=== PATIENT | female | born 1990 | race Caucasian/White ===

== ENCOUNTER 2017-06-29 15:41 | Emergency (ER) | payer MEDICAID, SELFPAY ==
[2017-06-29 15:54] VITALS: BP 133/72; PULSE 70; RESP 18; TEMP 36.7; O2SAT 96; BMI 15.6
--- NOTE | 2017-06-29 16:02 | XR_ITS ---
XR acute abdomen series Ordering Physician: Gage Peters MD Patient Age: 27 years: Female HISTORY: ITS.REASON: upper abdominal pain TECHNIQUE: Upright chest with flat and upright views abdomen COMPARISON :None FINDINGS . UPRIGHT CHEST. Lungs are clear no active disease. No free air beneath the diaphragm . FLAT AND UPRIGHT VIEWS OF ABDOMEN: Moderate to generous stool is seen throughout the transverse colon through the splenic flexure & to the descending colon.. Numerous air-fluid levels are seen at the right bowel loops, at the right abdomen.. These air-fluid levels of a likely involve both nondilated large bowel and small bowel. I would tend to favor developing enteritis at this point. I would anticipate patient would develop diarrhea and near term with this appearance.. A localized ileus towards right lower quadrant could also yield a similar appearance. If symptoms worsen or progress or localized towards right lower quadrant, consider CT. No significant calcifications. A moderately distended fluid-filled stomach. No organomegaly. Dextroscoliosis lumbar spine. ==== IMPRESSION: ======== Scattered moderate air-fluid levels are seen in nondilated bowel here at the right abdomen. Likely involving the right colon hepatic flexure as well as distal small bowel appears most likely reflects developing enteritis. Localized ileus could yield similar pattern. Moderate solid stool is seen throughout the distal transverse colon and left colon. If symptoms worsen or localized in the right lower quadrant and consider follow-up CT, preferably with contrast
--- NOTE | 2017-06-29 16:06 | HMH.EDGENADL ---
ED Disposition Clinical Impression: Abdominal pain, Left against medical advice, Amenorrhea Disposition: Home, Self-Care Condition on Discharge: Fair - Critical Care Critical Care Time: No Attestation: On , the high probability of a clinically significant, sudden or life threatening deterioration of the following system(s) required my full and direct attention, intervention and personal management. The time I documented below is in addition to time spent performing reported procedures but includes the following listed in this critical care notation. Medical Decision Making Vital Signs: 06/29/17 15:54 Temperature 98.1 F Temperature Source Temporal Artery Scan Pulse Rate [Right Brachial] 70 Respiratory Rate 18 Blood Pressure [Right Arm] 133/72 Blood Pressure Mean [Right Arm] 92 Blood Pressure Source [Right Arm] Automatic Cuff Blood Pressure Position [Right Arm] Sitting 02 Sat by Pulse Oximetry 96 Oxygen Delivery Method Room Air - Lab Data Lab results reviewed: Yes: I reviewed the patient's lab results. Lab Results 06/29/17 16:00: Urine Color Yellow, Urine Appearance Sl cloudy, Urine pH 6.0, Ur Specific [place] 1.020, Urine Protein Negative, Urine Glucose (UA) Negative, Urine Ketones Negative, Urine Blood Trace-i, Urine Nitrate Negative, Urine Bilirubin Negative, Urine Urobilinogen 0.2, Ur Leukocyte Esterase Negative, Urine RBC Occasional, Urine WBC Occasional, Ur Squamous Epith Cells 10-20, Urine Bacteria 3+ 06/29/17 16:02: Urine HCG, Qual Negative 06/29/17 17:47: WBC 5.3, RBC 4.80, Hgb 15.0, Hct 45.1, MCV 93.9, MCH 31.2, MCHC 33.3, RDW 12.2, Plt Count 191, MPV 8.6, Neut % (Auto) 41.4, Lymph % (Auto) 49.2, [place] % (Auto) 4.6, Eos % (Auto) 4.2, Baso % (Auto) 0.7, Neut # (Auto) 2.2, Lymph # (Auto) 2.6, [place] # (Auto) 0.2, Eos # (Auto) 0.2, Baso # (Auto) 0.0 Result diagrams: 06/29/17 17:47 Orders (Tests/Meds): ED MEDICATIONS Discontinued Medications Generic Name Dose Route Start Last Admin Trade Name Freq PRN Reason Stop Dose Admin Dicyclomine HCl 10 mg 06/29/17 16:02 06/29/17 17:35 Bentyl 10mg Capsule PO 06/29/17 16:03 10 mg ONCE ONE Administration Sodium Chloride 1,000 mls @ 999 mls/hr 06/29/17 16:15 06/29/17 17:49 Sod Chlor 0.9% 1000ml Bag IV 06/29/17 17:15 999 mls/hr .Q1H1M ALISON Administration ORDERS Category Date Time Status Comprehensive Metabolic Panel Stat Lab 06/29/17 17:47 Received Lipase Stat Lab 06/29/17 17:47 Received Urine Culture Stat Micro 06/29/17 16:00 Received - Radiology Data #1 Image(s): Abdomen, Pelvis Image Reviewed: Yes I have reviewed radiologist's interpretation Preliminary Findings: Abnormal - Ja Inquiry Pt receiving controlled substance: No Ja was queried for this patient: No Medical Decision Making Narrative: She lost her IV and declined to have another one while waiting on the labs Shortly after she wanted to leave and will call back for lab results or follow up with pcp Dr Telles in AM. she signed AMA aware of the risks and benefits. General Adult HPI - General Chief complaint: PAIN Stated complaint: abd pain, possibly Mode of Arrival: Ambulatory Limitations: No Limitations Description of Symptoms (Recalled from ER Triage Doc. by RN): abd pain - History of Present Illness HPI narrative: 27 years old white female with 2 para 2 A0, last menstrual period was at the end of March. She presented today with one week history of upper abdominal sharp pain, radiating across the upper abdomen, lasts for 5 minutes, 10 times a day with no precipitating or relieving factor. She has no fever no chills no nausea no vomiting no diarrhea. Hematemesis no coffee-ground emesis no bleeding per rectum, she denies chest pain shortness of breath or palpation. Onset (ago): week(s) (one week.) Location: abdomen Radiation: non-radiation Quality: sharp Consistency: intermittent Relieving factors: n
--- NOTE | 2017-06-29 16:09 | ED_ITS ---
ED Disposition Clinical Impression: Abdominal pain, Left against medical advice, Amenorrhea Disposition: Home, Self-Care Condition on Discharge: Fair - Critical Care Critical Care Time: No Attestation: On , the high probability of a clinically significant, sudden or life threatening deterioration of the following system(s) required my full and direct attention, intervention and personal management. The time I documented below is in addition to time spent performing reported procedures but includes the following listed in this critical care notation. Medical Decision Making Vital Signs: 06/29/17 15:54 Temperature 98.1 F Temperature Source Temporal Artery Scan Pulse Rate [Right Brachial] 70 Respiratory Rate 18 Blood Pressure [Right Arm] 133/72 Blood Pressure Mean [Right Arm] 92 Blood Pressure Source [Right Arm] Automatic Cuff Blood Pressure Position [Right Arm] Sitting 02 Sat by Pulse Oximetry 96 Oxygen Delivery Method Room Air - Lab Data Lab results reviewed: Yes: I reviewed the patient's lab results. Lab Results 06/29/17 16:00: Urine Color Yellow, Urine Appearance Sl cloudy, Urine pH 6.0, Ur Specific [place] 1.020, Urine Protein Negative, Urine Glucose (UA) Negative, Urine Ketones Negative, Urine Blood Trace-i, Urine Nitrate Negative, Urine Bilirubin Negative, Urine Urobilinogen 0.2, Ur Leukocyte Esterase Negative, Urine RBC Occasional, Urine WBC Occasional, Ur Squamous Epith Cells 10-20, Urine Bacteria 3+ 06/29/17 16:02: Urine HCG, Qual Negative 06/29/17 17:47: WBC 5.3, RBC 4.80, Hgb 15.0, Hct 45.1, MCV 93.9, MCH 31.2, MCHC 33.3, RDW 12.2, Plt Count 191, MPV 8.6, Neut % (Auto) 41.4, Lymph % (Auto) 49.2 , [place] % (Auto) 4.6, Eos % (Auto) 4.2, Baso % (Auto) 0.7, Neut # (Auto) 2.2, Lymph # (Auto) 2.6, [place] # (Auto) 0.2, Eos # (Auto) 0.2, Baso # (Auto) 0.0 Result diagrams: 06/29/17 17:47 Orders (Tests/Meds): ED MEDICATIONS Discontinued Medications Generic Name Dose Route Start Last Admin Trade Name Freq PRN Reason Stop Dose Admin Dicyclomine HCl 10 mg 06/29/17 16:02 06/29/17 17:35 Bentyl 10mg Capsule PO 06/29/17 16:03 10 mg ONCE ONE Administration Sodium Chloride 1,000 mls @ 999 mls/hr 06/29/17 16:15 06/29/17 17:49 Sod Chlor 0.9% 1000ml Bag IV 06/29/17 17:15 999 mls/hr .Q1H1M ALISON Administration ORDERS Category Date Time Status Comprehensive Metabolic Panel Stat Lab 06/29/17 17:47 Received Lipase Stat Lab 06/29/17 17:47 Received Urine Culture Stat Micro 06/29/17 16:00 Received - Radiology Data #1 Image(s): Abdomen, Pelvis Image Reviewed: Yes I have reviewed radiologist's interpretation Preliminary Findings: Abnormal - Ja Inquiry Pt receiving controlled substance: No Ja was queried for this patient: No Medical Decision Making Narrative: She lost her IV and declined to have another one while waiting on the labs Shortly after she wanted to leave and will call back for lab results or follow up with pcp Dr Telles in AM. she signed AMA aware of the risks and benefits. General Adult HPI - General Chief complaint: PAIN Stated complaint: abd pain, possibly Mode of Arrival: Ambulatory Limitations: No Limitations Description of Symptoms (Recalled from ER Triage Doc. by RN): abd pain - History of P
[2017-06-29 16:11] LABS: Microscopic, Urine URINE MICROSCOPIC (MICROSCOPIC)
[2017-06-29 16:12] LABS: Appearance,Urine SL CLOUDY (Clear); Bilirubin,Urine Negative (Negative); Blood, Urine TRACE-I (Negative); Color,Urine YELLOW (Yellow); Glucose,Urine (UA) Negative (Negative); Ketones,Urine Negative (Negative); Leukocyte Esterase,Urine Negative (Negative); Nitrate,Urine Negative (Negative); Protein,Urine Negative (Negative); Urobilinogen,Urine 0.2 EU/dl (0.2)
[2017-06-29 16:18] LABS: Bacteria,Urine 3+ /lpf; RBC,Urine Occasional #/hpf (0-3); WBC,Urine Occasional #/hpf (0-3)
[2017-06-29 16:34] LABS: Urine Pregnancy, HCG Qual. Negative (Negative)
[2017-06-29 17:55] LABS: Basophils % 0.7 % (0.1-2.0); Eosinophils # 0.2 K/mm3 (0.0-0.4); Eosinophils % 4.2 % (0.1-12.0); Hematocrit 45.1 % (37.0-47.0); Lymphocytes # 2.6 K/mm3 (0.7-4.5); Lymphocytes % 49.2 K/mm3 (10-50); Mean Corpuscular HGB Conc 33.3 g/dL (31.8-35.4); Mean Corpuscular Hemoglobin 31.2 pg (27.0-31.2); Mean Corpuscular Volume 93.9 fl (81-99); Mean Platelet Volume 8.6 fl (7.4-10.4); Monocytes # 0.2 K/mm3 (0.1-1.0); Monocytes % 4.6 % (1.7-9.3); Neutrophils # 2.2 K/mm3 (1.8-7.8); Neutrophils % 41.4 % (37.0-80.0); Platelet Count 191 K/mm3 (142-424); Red Cell Distribution Width 12.2 % (11.5-17.5); White Blood Count 5.3 K/mm3 (4.8-10.8)
[2017-06-29 18:05] VITALS: BP 123/70; PULSE 72; RESP 18; TEMP 36.7; O2SAT 98
[2017-06-29 18:07] LABS: Alanine Aminotransferase 32 U/L (12-78); Albumin Level 4.5 gm/dL (3.4-5.0); Albumin/Globulin Ratio 1.3 (1.1-1.8); Alkaline Phosphatase 89 U/L (46-116); Anion Gap 9.9 mEq/L (5-15); Bilirubin,Total 0.4 mg/dL (0.2-1.0); Blood Urea Nitrogen 9 mg/dL (7-18); Calcium 8.7 mg/dL (8.5-10.1); Carbon Dioxide 30 mmol/L (21.0-32.0); Chloride 102 mmol/L (98-107); Creatinine Clearance Estimated 77 mL/min (0-300); Creatinine,Serum 0.79 mg/dL (0.55-1.02); Estimated Glomerular Filt Rate 88 ml/min (>60); GFR (African American) 106 ML/MIN (>60); Globulin 3.6 gm/dl (1.3-3.2); Glucose 84 mg/dL (74-106); Lipase 96 u/L (73-393); Sodium 138 mmol/L (136-145); Total Protein,Serum 8.1 gm/dL (6.4-8.2)
[2017-06-29 18:10] LABS: Aspartate Amino Transferase 22 U/L (15-37); Potassium 3.9 mmoL/L (3.5-5.1)
== END 2017-06-29 18:05 | disposition left against medical advice (07) ==
PROVIDERS: Emergency Provider Emergency Medicine
DX: R10.84 Generalized abdominal pain (principal); N91.2 Amenorrhea, unspecified; F17.210 Nicotine dependence, cigarettes, uncomplicated
CPT/HCPCS: 74021; 80053; 81001; 81025; 83690; 85025; 87086; 96365; 99282

== ENCOUNTER → 2018-10-07 18:35 | Outpatient (CLI) | payer MEDICAID, SELFPAY ==
[2018-10-07 19:53] LABS: Amphetamine/Metha Screen,Urine Negative ng/mL (<1000); Barbiturates Screen,Urine Negative ng/mL (<200); Benzodiazepines Screen,Urine Negative ng/mL (<200); Cannabinoid Screen,Urine Negative ng/mL (<50); Cocaine Screen,Urine Negative ng/mL (<300); Methadone Screen,Urine Negative ng/mL (<300); Opiate Screen,Urine Negative ng/mL (<300); Phencyclidine Screen,Urine Negative ng/mL (<25)
== END ==
PROVIDERS: Visit Provider Nurse Practitioner Family
DX: Z79.899 Other long term (current) drug therapy (principal)
CPT/HCPCS: 80305

== ENCOUNTER → 2018-11-06 17:42 | Outpatient (CLI) | payer MEDICAID, SELFPAY ==
[2018-11-06 18:36] LABS: Amphetamine/Metha Screen,Urine Negative ng/mL (<1000); Barbiturates Screen,Urine Negative ng/mL (<200); Benzodiazepines Screen,Urine Negative ng/mL (<200); Cannabinoid Screen,Urine Negative ng/mL (<50); Cocaine Screen,Urine Negative ng/mL (<300); Methadone Screen,Urine Negative ng/mL (<300); Opiate Screen,Urine Negative ng/mL (<300); Phencyclidine Screen,Urine Negative ng/mL (<25)
== END ==
PROVIDERS: Visit Provider Nurse Practitioner Family
DX: Z79.899 Other long term (current) drug therapy (principal)
CPT/HCPCS: 80305

== ENCOUNTER → 2018-11-27 09:56 | Outpatient (CLI) | payer MEDICAID, SELFPAY ==
--- NOTE | 2018-11-27 10:06 | US_ITS ---
US OB transvaginal HISTORY: ITS.REASON: US OB Dates ORDERING PHYSICIAN: John Kay MD PATIENT AGE: 28 years COMPARISON: None FINDINGS: An intrauterine gestational sac is present with a pole with a crown-rump length of 2.26cm correlating to gestational age of 9w0d. heart tones are present with an FHR of 176 bpm's. Yolk sac is noted. Adnexa: Unremarkable. IMPRESSION: Live intrauterine gestation at 9 weeks 0 days as described above. Estimated due date by Ultrasound is 07/02/2019
== END ==
PROVIDERS: PCP Emergency Medicine; Visit Provider Nurse Practitioner Obstetrics & Gynecology
DX: O26.841 Uterine size-date discrepancy, first trimester (principal)
CPT/HCPCS: 76817

== ENCOUNTER → 2018-12-22 09:14 | Outpatient (CLI) | payer MEDICAID, SELFPAY ==
[2018-12-22 10:12] LABS: Basophils % 0.4 % (0.1-2.0); Eosinophils # 0.2 K/mm3 (0.0-0.4); Eosinophils % 3.8 % (0.1-12.0); Hematocrit 38.5 % (37.0-47.0); Hemoglobin 12.9 g/dL (12.2-16.2); Lymphocytes % 30.6 % (10-50); Mean Corpuscular HGB Conc 33.5 g/dL (31.8-35.4); Mean Corpuscular Hemoglobin 31.1 pg (27.0-31.2); Mean Corpuscular Volume 92.8 fl (81-99); Mean Platelet Volume 7.9 fl (7.4-10.4); Monocytes # 0.3 K/mm3 (0.1-1.0); Monocytes % 5.2 % (1.7-9.3); Neutrophils # 3.9 K/mm3 (1.8-7.8); Neutrophils % 59.9 % (37.0-80.0); Platelet Count 212 K/mm3 (142-424); Red Blood Count 4.15 M/mm3 (4.20-5.40); Red Cell Distribution Width 12.2 % (11.5-17.5); White Blood Count 6.4 K/mm3 (4.8-10.8)
[2018-12-23 05:08] LABS: HIV Screen 4th Generation wRfx Non Reactive (Non Reactive)
[2018-12-23 07:28] LABS: Hepatitis B Surface Antigen Negative (Negative); Hepatitis C Antibody <0.1 s/co ratio (0.0-0.9)
[2018-12-23 14:30] LABS: Rapid Plasma Reagin Ab Titer Non Reactive (NonRea<1:1); Rubella Antibodies, IgG 2.62 index (Immune >0.99)
== END ==
PROVIDERS: Visit Provider Nurse Practitioner Obstetrics & Gynecology
DX: Z34.90 Encounter for supervision of normal pregnancy, unspecified, unspecified trimester (principal)
CPT/HCPCS: 36415; 85025; 86592; 86703; 86762; 86850; 87340; 87380; G0432

== ENCOUNTER → 2018-12-22 17:23 | Outpatient (CLI) | payer MEDICAID, SELFPAY | PROVIDERS: Visit Provider Nurse Practitioner Obstetrics & Gynecology | DX: Z34.90 Encounter for supervision of normal pregnancy, unspecified, unspecified trimester (principal) | CPT/HCPCS: 87086; 87088; 87186 ==

== ENCOUNTER → 2018-12-31 17:15 | Outpatient (CLI) | payer MEDICAID, SELFPAY ==
[2018-12-31 19:42] LABS: Amphetamine/Metha Screen,Urine Negative ng/mL (<1000); Barbiturates Screen,Urine Negative ng/mL (<200); Benzodiazepines Screen,Urine Negative ng/mL (<200); Cannabinoid Screen,Urine Negative ng/mL (<50); Cocaine Screen,Urine Negative ng/mL (<300); Methadone Screen,Urine Negative ng/mL (<300); Opiate Screen,Urine Negative ng/mL (<300); Phencyclidine Screen,Urine Negative ng/mL (<25)
== END ==
PROVIDERS: Visit Provider Nurse Practitioner Family
DX: M41.126 Adolescent idiopathic scoliosis, lumbar region (principal)
CPT/HCPCS: 80305

== ENCOUNTER → 2019-02-10 14:30 | Outpatient (CLI) | payer OTHER, SELFPAY ==
--- NOTE | 2019-02-10 14:32 | US_ITS ---
PROCEDURE: US OB /MATERNAL DETAIL CLINICAL INDICATION: US OB Complete 20wk+ Anatomy Scan The the the COMPARISON: [facility] US OB transvaginal from 11/27/2018 FINDINGS: Single viable intrauterine gestation. Breech position. Placenta: Anteriorplacenta grade 1. There is average amount fluid. The cervix appears satisfactory. Closed and measuring 4 cm in length. Complete survey performed and was unremarkable on the submitted images as in PACS. No discrete anomalies identified on survey imaging by technologist. Active fetus. Three-vessel cord with satisfactory umbilical cord insertion. 4- chamber heart noted. Survey of brain & ventricles Unremarkable. Face and neck survey unremarkable. Diaphragm and chest views unremarkable. Abdomen: Both kidneys noted and unremarkable. Stomach noted and satisfactory. Spine: Survey of the spine satisfactory with no anomalies identified nor imaged. Both arms and legs noted. Amniotic Fluid: Adequate. Maternal adnexa: No significant findings. Measurements: Average ultrasound age 19 weeks 5 days. Gestational Age 19 weeks 5 days Estimated due date by ultrasound age 0307/02/2019. Estimated weight 301.1 ggrams. BPD = 19 weeks 5 D OFD = 20 weeks 2 D HC = 19 weeks 2 D AC = 19 weeks 5 D FL = 19 weeks 5 D Growth Percentile= 38 percent% Heart Rate = 144 bpm Cerebellum = 19 weeks 6 D Humerus = HC/AC is 1.15 CI is 0.77 FL/BPD is 0.69 FL/AC is 0.22 IMPRESSION: There is a single live fetus which is in breech presentation. Average ultrasound age is 19 weeks and 5 days. All parameters correlate. No obvious anomalies. Please see above for detail. Dictated by: Yusuf Blum MD 02/10/2019 16:11 Electronically signed by Yusuf Blum MD in [place] 02/10/2019 16:11
== END ==
PROVIDERS: PCP Nurse Practitioner Family; Visit Provider Nurse Practitioner Obstetrics & Gynecology
DX: Z36.0 Encounter for antenatal screening for chromosomal anomalies (principal)
CPT/HCPCS: 76811

== ENCOUNTER 2019-03-23 12:37 | Outpatient (CLI) | payer OTHER, SELFPAY ==
[2019-03-23 13:35] LABS: Glucose,Fasting 75 mg/dL (60-105)
[2019-03-23 14:28] VITALS: BP 101/62; PULSE 75; RESP 18; TEMP 36.6; O2SAT 99
[2019-03-23 15:48] LABS: Glucose 1 Hour 194 mg/dL (74-106)
== END 2019-03-23 14:55 | disposition home or self-care (01) ==
LOC: LAB 12:38 → INF 14:36
PROVIDERS: Visit Provider Nurse Practitioner Obstetrics & Gynecology
DX: Z34.90 Encounter for supervision of normal pregnancy, unspecified, unspecified trimester (principal)
CPT/HCPCS: 82951; 96372; J2790

== ENCOUNTER → 2019-04-02 09:09 | Outpatient (CLI) | payer OTHER, SELFPAY ==
[2019-04-02 09:34] LABS: Glucose,Fasting 80 mg/dL (60-105)
[2019-04-02 10:51] LABS: Glucose 1 Hour 123 mg/dL (74-106)
[2019-04-02 11:44] LABS: Glucose 2 Hour 132 mg/dL (74-106)
[2019-04-02 12:41] LABS: Glucose 3 Hour 98 mg/dL (74-106)
== END ==
PROVIDERS: Visit Provider Nurse Practitioner Obstetrics & Gynecology
DX: Z34.90 Encounter for supervision of normal pregnancy, unspecified, unspecified trimester (principal)
CPT/HCPCS: 36415; 82951

== ENCOUNTER → 2019-11-03 13:02 | Outpatient (CLI) | payer OTHER, SELFPAY ==
--- NOTE | 2019-11-03 13:02 | MR_ITS ---
PROCEDURE: MR LUMBAR SPINE WO CON CLINICAL INDICATION: back pain BACK PAIN XYRS. BILATERAL LEG NUMBNESS. NO PRIOR. COMPARISON: [facility] XR acute abdomen series from 06/29/2017 TECHNIQUE: Standard multiplanar multiecho sequences are performed without contrast. 3-D MIP and myelographic images are also rendered and reviewed FINDINGS: The spinal cord ends at the T12 level. There is mild thoracolumbar curvature convex right. T12-L1, L1-L2, L2-L3, and L3-L4 have an unremarkable appearance. There is minimal disc desiccation with minimal bulging disc at L4-5 with mild facet ligamentum hypertrophy and mild bilateral lateral recess and foraminal narrowing. L5-S1: Unremarkable. No extruded herniated disc evident there is borderline narrowing of the canal at L4-5 at 12 mm IMPRESSION: Minimal disc desiccation and minimal bulging disc at L4-5 with mild facet and ligamentum hypertrophy with mild bilateral lateral recess and foraminal narrowing and borderline narrowing of the canal. No herniated disc Mild thoracolumbar curvature convex right Dictated by: Yusuf Blum MD 11/04/2019 11:41 Electronically signed by Yusuf Blum MD in [place] 11/04/2019 11:41
== END ==
PROVIDERS: PCP Emergency Medicine; Visit Provider Emergency Medicine
DX: M54.5 Low back pain (principal)
CPT/HCPCS: 72148; 76376

== ENCOUNTER → 2020-07-26 17:08 | Outpatient (CLI) | payer OTHER, SELFPAY | PROVIDERS: Visit Provider Emergency Medicine | DX: R82.90 Unspecified abnormal findings in urine (principal) | CPT/HCPCS: 87086 ==

== ENCOUNTER 2023-06-12 18:25 | Outpatient (CLI) | payer OTHER, SELFPAY ==
[2023-06-12 18:15] LABS: Basophils % 0.5 % (0.1-2.0); Eosinophils # 0.2 K/mm3 (0.0-0.4); Eosinophils % 3.7 % (0.1-12.0); Hematocrit 40.7 % (37.0-47.0); Hemoglobin 15.1 g/dL (12.2-16.2); Lymphocytes # 2.8 K/mm3 (0.7-4.5); Lymphocytes % 45.7 % (10-50); Mean Corpuscular Hemoglobin 35.8 pg (27.0-31.2); Mean Corpuscular Volume 96.7 fl (81-99); Mean Platelet Volume 9.8 fl (7.4-10.4); Monocytes # 0.5 K/mm3 (0.1-1.0); Monocytes % 7.8 % (1.7-9.3); Neutrophils # 2.6 K/mm3 (1.8-7.8); Neutrophils % 42.2 % (37.0-80.0); Platelet Count 197 K/mm3 (142-424); Red Blood Count 4.21 M/mm3 (4.20-5.40); Red Cell Distribution Width 13.1 % (11.5-17.5); White Blood Count 6.1 K/mm3 (4.8-10.8)
[2023-06-12 18:41] LABS: Alanine Aminotransferase 28 U/L (12-78); Albumin Level 4.6 g/dl (3.5-5.0); Albumin/Globulin Ratio 1.6 (1.1-1.8); Alkaline Phosphatase 84 U/L (38-126); Aspartate Amino Transferase 32 U/L (14-36); Bilirubin,Total 0.5 mg/dl (0.2-1.3); Blood Urea Nitrogen 10 mg/dl (7-17); Calcium 9.6 mg/dl (8.4-10.2); Carbon Dioxide 31 mmol/L (22.0-30.0); Chloride 102 mmol/L (98-107); Chol/HDL Ratio 4.1 (1-3.5); Cholesterol 206 mg/dl (140-200); Estimated Glomerular Filt Rate 97 ml/min (>60); GFR (African American) 117 ML/MIN (>60); Globulin 2.8 g/dL (1.3-3.2); Glucose 97 mg/dl (74-100); HDL Cholesterol 50 mg/dl (40-60); Sodium 138 mmol/L (136-145); Total Protein,Serum 7.4 g/dl (6.3-8.2); Triglycerides 76 mg/dl (30-150); VLDL Cholesterol 15 mg/dL (0-40)
[2023-06-12 18:52] LABS: Direct LDL Cholesterol 117.98 mg/dL (100-129)
[2023-06-12 18:57] LABS: 25-OH Vitamin D, Total 25.9 ng/mL (30-100)
[2023-06-12 19:10] LABS: Thyroid Stimulating Hormone 1.24 uIU/mL (0.465-4.68)
[2023-06-13 10:24] LABS: Vitamin B12 403 pg/mL (239-931)
== END 2023-06-12 23:59 ==
LOC: LAB.DROPOF 18:26
PROVIDERS: PCP Family Medicine; Visit Provider Family Medicine
DX: M79.2 Neuralgia and neuritis, unspecified (principal); D75.89 Other specified diseases of blood and blood-forming organs; E55.9 Vitamin D deficiency, unspecified; Z79.899 Other long term (current) drug therapy
CPT/HCPCS: 80053; 80061; 82306; 82607; 84443; 85025